=== PATIENT | male | born 1990 | race Caucasian/White ===

== ENCOUNTER 2016-11-13 17:32 | Emergency (ER) | payer MEDICARE, MEDICAID ==
[2016-11-13 17:54] VITALS: RESP 20; O2SAT 98
[2016-11-13] MEDS ORDERED: LIDOCAINE HCL 2% (VISCOUS) 20 ML SOL MT ONE (18:11)
[2016-11-13] MEDS ORDERED: LIDOCAINE HCL 2% (VISCOUS) 20 ML SOL ONE (18:18)
[2016-11-13 19:13] VITALS: BP 143/87; PULSE 77; TEMP 99
[2016-11-13] MEDS ORDERED: AMOXIL/CLAVULANATE 400/5 ML PDR ONE (20:10)
[2016-11-13] MEDS ORDERED: AMOXIL/CLAVULANATE 875/125 TAB PO SCH (21:00)
== END 2016-11-13 20:18 | disposition home or self-care (01) | DRG 159 ==
LOC: ED 17:32
DX: R68.84 Jaw pain (principal); S00.31XA Abrasion of nose, initial encounter; S00.81XA Abrasion of other part of head, initial encounter; V18.0XXA Pedal cycle driver injured in noncollision transport accident in nontraffic accident, initial encounter
CPT/HCPCS: 70450; 70486; 99284; A6402